=== PATIENT | female | born 1975 | race African-American/Black ===

== ENCOUNTER 2021-03-19 11:21 | Outpatient (REF) | payer OTHER, SELFPAY ==
[2021-03-19 13:04] LABS: Alanine Aminotransferase 11 U/L (0-31); Albumin Level 3.7 g/dL (3.5-5.0); Alkaline Phosphatase 66 U/L (39-117); Aspartate Amino Transferase 16 U/L (5-31); Bilirubin Direct 0.3 mg/dL (0.0-0.5); Bilirubin Total 0.6 mg/dL (0.0-1.0); Total Protein 6.7 g/dL (6.5-8.0)
== END 2021-03-19 11:22 | disposition home or self-care (01) ==
LOC: HO.LAB 11:21
PROVIDERS: PCP Internal Medicine; Visit Provider Internal Medicine
DX: R60.0 Localized edema (principal)
CPT/HCPCS: 36415; 80076; 84443

== ENCOUNTER 2021-04-06 10:09 | Outpatient (REF) | payer OTHER, SELFPAY ==
[2021-04-07 11:18] LABS: CT PCR NOT DETECTED (Not Detect.); NG PCR NOT DETECTED (Not Detect.)
[2021-04-07 11:57] LABS: BV Int Neg Control Negative (Negative); BV Int Pos Control Positive (Positive)
[2021-04-11 20:52] LABS: HPV mRNA E6/E7 rflx Not Detected (Not Detected)
== END 2021-04-06 10:10 | disposition home or self-care (01) ==
LOC: HO.LAB 10:09
PROVIDERS: PCP Internal Medicine; Visit Provider Advanced Practice Midwife
DX: Z01.419 Encounter for gynecological examination (general) (routine) without abnormal findings (principal); Z11.51 Encounter for screening for human papillomavirus (HPV); Z11.3 Encounter for screening for infections with a predominantly sexual mode of transmission; N92.0 Excessive and frequent menstruation with regular cycle; N92.1 Excessive and frequent menstruation with irregular cycle; N93.8 Other specified abnormal uterine and vaginal bleeding; Z97.5 Presence of (intrauterine) contraceptive device
CPT/HCPCS: 87480; 87491; 87510; 87591; 87624; 87660; 88142

== ENCOUNTER 2021-04-11 07:34 | Outpatient (REF) | payer OTHER, SELFPAY ==
[2021-04-11 08:08] LABS: MANUAL DIFF FLAG NO
[2021-04-11 08:27] LABS: Basophils Percent Auto 0.4 % (0-2); Eosinophils Absolute Auto 0.1 X10*3/uL (0.0-0.4); Eosinophils Percent Auto 1.2 % (0-4); Hematocrit 38.6 % (37-47); Hemoglobin 12.9 g/dl (12.0-16.0); Imm Gran Abs Auto 0.01 X10*3/uL (0.00-0.03); Imm Gran Pct Auto 0.1 % (0.0-0.4); Lymphocytes Absolute Auto 1.6 X10*3/uL (1.2-4.9); Lymphocytes Percent Auto 23.9 % (20-40); Mean Corpuscular HGB Conc 33.4 g/dl (31.0-35.0); Mean Corpuscular Hemoglobin 29.5 pg (27.0-33.0); Mean Corpuscular Volume 88.3 fL (80-98); Monocytes Absolute Auto 0.4 X10*3/uL (0.1-1.2); Monocytes Percent Auto 6.3 % (2-11); Neutrophils Absolute Auto 4.7 X10*3/uL (2.0-8.3); Neutrophils Percent Auto 68.1 % (45-73); Platelet Count 217 X10*3/uL (160-400); Red Blood Count 4.37 X10*6/uL (4.20-5.50); Red Cell Distribution Width 13.5 % (11.0-16.0); White Blood Count 6.9 X10*3/uL (4.8-10.8)
[2021-04-11 08:31] LABS: Anion Gap 9 (12-20); Blood Urea Nitrogen 11 mg/dL (9-16); Calcium 8.6 mg/dL (8.4-10.2); Carbon Dioxide 29 mmol/L (22-29); Chloride 106 mmol/L (96-108); Cholesterol 156 mg/dL; Estimated Glomerular Filt Rate > 60; Glucose Fasting 101 mg/dL (60-99); HDL Cholesterol 45 mg/dL; LDL Cholesterol Calculated 100 mg/dl; Potassium 4.4 mmol/L (3.3-5.1); Sodium 140 mmol/L (135-145); Triglycerides 57 mg/dL
== END 2021-04-11 07:35 | disposition home or self-care (01) ==
LOC: HO.LAB 07:34
PROVIDERS: Advanced Practice Midwife; PCP Internal Medicine; Visit Provider Nurse Practitioner Family
DX: Z01.419 Encounter for gynecological examination (general) (routine) without abnormal findings (principal); N92.0 Excessive and frequent menstruation with regular cycle; N93.8 Other specified abnormal uterine and vaginal bleeding; N92.1 Excessive and frequent menstruation with irregular cycle; Z97.5 Presence of (intrauterine) contraceptive device
CPT/HCPCS: 36415; 80048; 80061; 85025

== ENCOUNTER 2021-04-27 15:39 | Outpatient (REF) | payer OTHER, SELFPAY ==
--- NOTE | ~2021-04-27 | US_ITS ---
EXAMINATION: US PELVIS CLINICAL INFORMATION: Irregular/frequent menses. COMPARISON: None TECHNIQUE: Both transabdominal and endovaginal scanning was performed. FINDINGS: An anteverted anteflexed uterus present measuring 9.5 x 4.9 x 5.1 cm. Endometrium appears unremarkable at 1.1 cm in thickness. The right ovary measures 2.9 x 1.4 x 1.9 cm for a volume of 4.0 cm and contains a 1.6 x 1.9 x 1.2 cm cyst. The left ovary measures 2.7 x 1.4 x 2.1 cm for a volume of 4.2 mL. A small amount of free fluid is present in the cul-de-sac. US/US pelvic and transvaginal IMPRESSION: A significant abnormality is not seen. The endometrium appears normal. A right ovarian cyst is present that needs no further follow up.
== END 2021-04-27 15:40 | disposition home or self-care (01) ==
LOC: HO.US 15:39
PROVIDERS: Visit Provider Advanced Practice Midwife
DX: N92.1 Excessive and frequent menstruation with irregular cycle (principal); N92.0 Excessive and frequent menstruation with regular cycle; N93.8 Other specified abnormal uterine and vaginal bleeding; Z97.5 Presence of (intrauterine) contraceptive device
CPT/HCPCS: 76830; 76856

== ENCOUNTER → 2021-05-04 10:34 | Outpatient (BNVA) | payer OTHER, SELFPAY | PROVIDERS: PCP Internal Medicine; Visit Provider Advanced Practice Midwife ==

== ENCOUNTER 2024-05-17 07:51 | Outpatient (AMB) | payer OTHER, SELFPAY ==
[2024-05-17 08:05] VITALS: BP 132/88; BMI 35.9
--- NOTE | 2024-05-17 08:05 | A.OFFPC_ITS ---
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 This is the 1st time I am meeting this 49-year-old female with a past medical history significant for obesity and chronic intermittent edema in the feet. Concern--> intermittent bilateral lower extremity swelling. Has had x-rays of her lower extremities though no significant findings. Has not tried any medical compression as she feels her feet are very hot when she used socks. 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[facility]- [facility] Colon cancer screening: considering colonoscopy-though declines at this time Vaccines: Reports getting a Tdap, PFSH Surgical History History of section Family History Father Alive and well Mother Alive and well Social History (Updated 05/17/24 @ 08:18 by Jairon Boyce PA-C) Housing: House Alcohol intake: never Patient Tobacco Use Status: Never used Tobacco e-Cigarette/Vaping Use: Never Used Second Hand Smoke Exposure: No service: No Current occupational status: employed 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 1. Little interest or pleasure in doing things: not at all 2. Feeling down, depressed, or hopeless: not at all 3. Trouble falling or staying asleep, or sleeping too much: not at all 4. Feeling tired or having little energy: not at all 5. Poor appetite or overeating: not at all 6. Feeling bad about yourself - or that you are a failure or have let yourself or your family down: not at all 7. Trouble concentrating on things, such as reading the newspaper or watching television: not at all 8. Moving or speaking so slowly that other people could have noticed. Or the opposite - being so fidgety or restless that you have been moving around a lot more than usual: not at all 9. Thoughts that you would be better off or of hurting yourself in some way: not at all Total score: 0 Depression Screening [place] [address] - PHQ-9 Billing: Yes Source: Developed by Drs. Korey Altman, Marcie Moss, Lennox Welch and colleagues, with an educational kaden from [employer]. Thrive Questionnaire Date Thrive assessed: 05/17/24 I am a: Patient What is your living situation today?: I have a steady place to live Within the past 12 months, did the food you bought not last and you didn't have the money to get more?: Never true Within the past 12 months, did you worry whether your food would run out before you got money to buy more?: Never true Do you have trouble paying for medicines?: No Do you have trouble getting transportation to medical appointments?: No Do you have trouble paying your heating and electricity bill?: No Do you have trouble taking care of your child, family member or friend?: No Do you have trouble with day-to-day activities such as bathing, preparing meals, shopping, managing finances, etc.?: No Are you currently unemployed and looking for a job?: No Are you interested in more education?: No Please select the resources that you would like help with: None Currently or been in a relationship where the following occur: no concerns reported THRIVE Score: 0 AUDIT C Alcohol Use Questionnaire (AUDIT-C) 1. How often do you have a drink containing alcohol?: Never Total Score: 0 ZIA-7 AMB Questionnaire ZIA-7 Date ZIA - 7 assessed: 05/17/24 Feeling nervous, anxious, or on edge: 0 = Not at all Not being able to stop or control worryin = Not at all Worrying too much about different things: 0 = Not at all Trouble relaxin = Not at all Being so restless that it is hard to sit still: 0 = Not at all Becoming easily annoyed or irritable: 0 = Not at all Feeling afraid as if something awful might happen: 0 = Not at all Total ZIA-7 score (0-4 normal; 5-9 mild; 10-14 moderate; 15-21 severe): 0 Source: Developed by Drs. Korey Altman, Marcie Moss, Lennox Welch and colleagues, with an educational kaden from [employer]. ZIA-7 Assessment Billing ZAI-7 Assessment Tool: ZIA-7 Assessment 97024 Review of Systems Const Denies body aches, Denies chills, Denies excessive sweating, Denies fatigue, Denies fever(s) and Denies headache(s) Eyes Denies blurry vision ENT Denies dysphagia, Denies vertigo, Denies dizziness, Denies headache(s), Denies hearing loss and Denies tinnitus Card Denies chest pain, Denies chest pain with activity, Denies syncope, Denies irregular heart rhythm and Denies dyspnea Resp Denies chest congestion, Denies cough, Denies hemoptysis, Denies dyspnea and Denies wheezing GI Denies abdominal pain, Denies melena, Denies hematochezia, Denies coffee ground emesis, Denies dysphagia, Denies diarrhea, Denies nausea and Denies vomiting Denies urinary frequency, Denies dysuria, Denies urinary hesitancy and Denies urinary urgency Musc Denies arthralgias, Denies limited range of motion, Denies muscle cramps and Denies muscle weakness Skin/Breast Denies rash and Denies skin ulcer Neuro Denies Abnormal speech present, Denies confusion, Denies vertigo, Denies dizziness, Denies syncope, Denies headache(s), Denies memory loss and Denies seizure-like activity Psych Denies anxiety, Denies confusion, Denies depression, Denies memory loss, Denies panic attacks and Denies paranoia Endo Denies excessive sweating, Denies fatigue, Denies flushing, Denies polydipsia and Denies polyuria Aller/Immun Denies wheezing Physical exam (Primary Care) Vital Signs: Last Vital Signs BP 132/88 05/17/24 08:05 BMI result Body Mass Index 35.9 Tobacco/Smoking Status: Tobacco use Status Tobacco use date assessed 05/17/24 05/17/24 08:11 Patient Tobacco Use Status Never used Tobacco 05/17/24 08:11 e-Cigarette/Vaping Use Never Used 05/17/24 08:11 PHQ-9: PHQ-9 Score PHQ-9: Total score 0 05/17/24 08:11 Thrive Assessment: Date of Thrive Assessment Date Thrive assessed 05/17/24 05/17/24 08:11 Currently or been in a relationship where the following occur: no concerns reported Const General: cooperative, comfortable, no acute distress, alert and awake; No confusion Orientation/consciousness: oriented to person, oriented to place, patient oriented x3 and No confusion HENMT Head: Yes normocephalic Ears: external ears normal and TM's normal bilaterally Face and sinus: No sinus tenderness Mouth: Normal oral and palatal mucosa present and tongue normal Teeth and gingiva: dentition normal and gingiva normal Throat: Yes posterior oropharynx normal, Yes tonsils normal and Yes uvula midline Eyes Conjunctivae: conjunctivae normal Sclerae: sclerae normal Pupils: Equal, round and reactive pupils present EOM: EOMs intact bilaterally Direct Ophthalmoscopy: No no photophobia Neck Neck: Yes no lymphadenopathy, No tender and Yes no JVD Thyroid: Thyroid normal Carotids: no bruits Chest Chest palpation & inspection: no tenderness Resp Effort & Inspection: normal respiratory effort, no audible wheezes, not labored and no stridor Auscultation: no crackles, no rales, no rhonchi and no wheezes Cardio Jugular venous distension: no JVD Rate: regular rate, not bradycardic and not tachycardic Rhythm: regular rhythm Bruits: no carotid bruits Peripheral pulses: Peripheral pulses 2+ throughout GI Inspection: Yes normal to inspection, No abdominal wall ecchymosis and No visible herniation Palpation (GI): Soft to palpation, nontender, no guarding, not rigid and No hepatosplenomegaly present Auscultation: normoactive bowel sounds General: Yes no CVA tenderness Back/Spine/Pelvis Back: no CVA tenderness and No back tenderness Cervical Spine: cervical ROM normal Thoracic/Lumbar Spine: thoracic and lumbar spine normal to inspection, straight leg raise negative bilaterally, No thoraco-lumbar ROM limited and No lumbar spinal tenderness Skin Lesions: no lesions Rashes: no rashes Wounds: no wounds Neuro General: oriented to person, oriented to place, patient oriented x3, CN's II-XI intact bilaterally and No confusion Cranial nerves: Yes Equal, round and reactive pupils present and Yes Normal accommodation reflex present Cognition (Neuro): normal cognition Speech: No Abnormal speech present Gait exam (Neuro): Normal gait present Motor exam (neuro): 5/5 motor strength present throughout Extrem Right upper extremity: full ROM; no cyanosis Left upper extremity: full ROM; no cyanosis Right lower extremity: edema Left lower extremity: edema Psych Appearance: grossly normal Mental Status: mental status grossly normal Affect: normal affect Attitude: cooperative Thought process: Normal thought process present Assessment and Plan Assessment & Plan (1) Physical exam: Code(s): Z00.00 - Encounter for general adult medical examination without abnormal findings (2) Edema of both feet: Code(s): R60.0 - Localized edema Plan: Patient reports a several year history of intermittent swelling in her lower extremities. She does report getting x-rays over lower extremities though nothing was found. Did suggest getting ultrasound to evaluate for peripheral vascular venous disease. Advised on compression socks. Will supply patient with low-dose diuretic to use on a daily or [id number] basis. Advised on low-sodium diet (3) Colon cancer screening: Code(s): Z12.11 - Encounter for screening for malignant neoplasm of colon Plan: patient considering colon cancer screening (4) Screening for diabetes mellitus (DM): Code(s): Z13.1 - Encounter for screening for diabetes mellitus (5) Borderline high blood pressure: Code(s): R03.0 - Elevated blood-pressure reading, without diagnosis of hypertension Plan: Noted borderline high blood pressure today in office. Will start hydrochlorothiazide 12.5 for better blood pressure control. Advised on monitoring blood pressure and reducing salt in her diet. Orders: Orders Complete Blood Count no Diff Today Z13.1 - Encounter for screening for diabetes mellitus Comprehensive [place]. Panel Fast Today Z13.1 - Encounter for screening for diabetes mellitus US venous duplex LE BI Today R60.0 - Localized edema Medications: New hydrochlorothiazide 12.5 mg PO QAM 30 days 30 tabs 1RF R60.0 - Localized edema Coding Level of Care Code Est Pt Prev Care 40-64y(88535) Diagnoses Physical exam Z00.00 Edema of both feet R60.0 Colon cancer screening Z12.11 Screening for diabetes mellitus (DM) Z13.1 Borderline high blood pressure R03.0 Additional Codes ZIA-7 Assessment Billing - ZIA-7 Assessment Tool: ZIA-7 Assessment [id number] ([id number])
== END 2024-05-17 08:35 | disposition home or self-care (01) ==
PROVIDERS: PCP Internal Medicine; Visit Provider Physician Assistant
DX: Z00.00 Encounter for general adult medical examination without abnormal findings (principal); R60.0 Localized edema; R03.0 Elevated blood-pressure reading, without diagnosis of hypertension
CPT/HCPCS: 99396

== ENCOUNTER 2024-05-19 08:25 | Outpatient (REF) | payer OTHER, SELFPAY ==
--- NOTE | ~2024-05-19 | US_ITS ---
EXAMINATION: US LOWER EXTREMITY VENOUS (REFLUX EXAM), BILATERAL CLINICAL INDICATION: Localized edema, for PVD COMPARISON: None. TECHNIQUE: Color flow triplex imaging and compression Doppler was performed to evaluate both the deep and the superficial systems bilaterally. To evaluate the superficial system, the examination was performed in the upright position. Color-flow Doppler ultrasound and compression ultrasound were utilized. In addition, maneuvers were utilized to demonstrate reflux. FINDINGS: 1. DEEP VENOUS ULTRASOUND OF THE RIGHT LOWER EXTREMITY: Common Femoral Vein: Compressible, normal respiratory variation and augmented flow. Femoral Vein: Compressible, normal color flow and augmentation. Popliteal Vein: Compressible, normal augmentation. Deep Reflux: There is no evidence of reflux in the deep system in either the common femoral vein, superficial femoral or the popliteal vein. There is no evidence of a Day's cyst. 2. SUPERFICIAL ULTRASOUND WITH DOPPLER OF RIGHT LOWER EXTREMITY: GREAT SAPHENOUS VEIN: Saphenofemoral Junction: 0.6 cm; Reflux: 0 ms Proximal Thigh: 0.7 cm; Reflux: 0 ms Mid Thigh: 0.3 cm; Reflux: 0 ms Above Knee: 0.4 cm; Reflux: 0 ms At Knee: 0.4 cm; Reflux: 0 ms Below Knee: 0.2 cm; Reflux: 0 ms Mid Calf: 0.2 cm; Reflux: 0 ms Ankle: 0.2 cm; Reflux: 0 ms SMALL SAPHENOUS VEIN: Saphenopopliteal Junction: 0.2 cm; Reflux: 0 ms Proximal: 0.2 cm; Reflux: 0 ms Distal: 0.1 cm; Reflux: 0 ms 3. DEEP VENOUS ULTRASOUND OF THE LEFT LOWER EXTREMITY: Common Femoral Vein: Compressible, normal respiratory variation and augmented flow. Femoral Vein: Compressible, normal color flow and augmentation. Popliteal Vein: Compressible, normal augmentation. Deep Reflux: There is no evidence of reflux in the deep system in either the common femoral vein, superficial femoral or the popliteal vein. There is no evidence of a Day's cyst. 4. SUPERFICIAL ULTRASOUND WITH DOPPLER OF LEFT LOWER EXTREMITY: GREAT SAPHENOUS VEIN: Saphenofemoral Junction: 0.4 cm; Reflux: 0 ms Proximal Thigh: 0.5 cm; Reflux: 0 ms Mid Thigh: 0.2 cm; Reflux: 0 ms Above Knee: 0.3 cm; Reflux: 0 ms At Knee: 0.3 cm; Reflux: 0 ms Below Knee: 0.1 cm; Reflux: 0 ms Mid Calf: 0.2 cm; Reflux: 0 ms Ankle: 0.2 cm; Reflux: 0 ms SMALL SAPHENOUS VEIN: Saphenopopliteal Junction: 0.1 cm; Reflux: 0 ms Proximal: 0.1 cm; Reflux: 0 ms Distal: 0.2 cm; Reflux: 0 ms US/US venous duplex LE BI IMPRESSION: 1. No evidence of deep venous thrombosis or reflux. 2. No significant venous insufficiency bilaterally.
[2024-05-19 10:11] LABS: Hematocrit 40.7 % (37.0-47.0); Mean Corpuscular HGB Conc 34.4 g/dl (31.0-35.0); Mean Corpuscular Hemoglobin 30.3 pg (27.0-33.0); Mean Corpuscular Volume 88.1 fL (80.0-98.0); Mean Platelet Volume 10.9 fL (9.4-12.3); Platelet Count 228 X10*3/uL (160-400); Red Blood Count 4.62 X10*6/uL (4.20-5.50); Red Cell Distribution Width 13.6 % (11.0-16.0)
[2024-05-19 11:10] LABS: Alanine Aminotransferase 12 U/L (0-31); Albumin Level 3.7 g/dL (3.5-5.0); Alkaline Phosphatase 62 U/L (39-117); Anion Gap 9 (12-20); Aspartate Amino Transferase 14 U/L (5-31); Bilirubin Total 0.4 mg/dL (0.0-1.0); Blood Urea Nitrogen 8 mg/dL (9-16); Calcium 9.3 mg/dL (8.4-10.2); Carbon Dioxide 29 mmol/L (22-29); Chloride 107 mmol/L (96-108); Estimated Glomerular Filt Rate > 60; Glucose Fasting 98 mg/dL (60-99); Potassium 4.5 mmol/L (3.3-5.1); Sodium 140 mmol/L (135-145)
== END 2024-05-19 08:26 | disposition home or self-care (01) ==
LOC: HO.US 08:25
PROVIDERS: PCP Internal Medicine; Visit Provider Physician Assistant
DX: R60.0 Localized edema (principal); Z13.1 Encounter for screening for diabetes mellitus
CPT/HCPCS: 36415; 80053; 85027; 93970

== ENCOUNTER 2025-05-19 08:51 | Outpatient (AMB) | payer OTHER, SELFPAY ==
[2025-05-19 08:53] VITALS: BP 126/84; PULSE 71; O2SAT 98; BMI 38.1
--- NOTE | 2025-05-19 08:53 | A.OFFPC_ITS ---
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 Accompanied by: Self / Same As Patient Allergies No Known Allergies Allergy (Verified 05/19/25 08:54) Medication List - Last Reconciled 05/19/25 by Grover Doran MD etonogestrel (Nexplanon) subdermal Tobacco use date assessed: 05/19/25 Dental Screening Dental Screen Date: 05/19/25 Did you have a dental visit in the last 12 months?: No Did you have a dental problem in the last 6 months where you did not have access to dental care?: No Was dental information given to patient?: Patient has dentist [facility] Surgical History History of section Family History Father Alive and well Mother Alive and well Social History Housing: House Alcohol intake: never Patient Tobacco Use Status: Never used Tobacco e-Cigarette/Vaping Use: Never Used Second Hand Smoke Exposure: No service: No Current occupational status: employed Current occupation: [employer] Current occupational exposures/hazards: No Gender identity: Female Cognitive needs: No Hearing needs: No Vision needs: No Female Reproductive History Menstrual Age of Menarche: 17 Questionnaire PHQ-9 Over the last 2 weeks, how often have you been bothered by any of the following problems? 1. Little interest or pleasure in doing things: not at all 2. Feeling down, depressed, or hopeless: not at all 3. Trouble falling or staying asleep, or sleeping too much: not at all 4. Feeling tired or having little energy: not at all 5. Poor appetite or overeating: not at all 6. Feeling bad about yourself - or that you are a failure or have let yourself or your family down: not at all 7. Trouble concentrating on things, such as reading the newspaper or watching television: not at all 8. Moving or speaking so slowly that other people could have noticed. Or the opposite - being so fidgety or restless that you have been moving around a lot more than usual: not at all 9. Thoughts that you would be better off or of hurting yourself in some way: not at all Total score: 0 21919 - PHQ-9 Billing: Yes Source: Developed by Drs. Korey Altman, Marcie Moss, Lennox Welch and colleagues, with an educational kaden from [employer]. Thrive Questionnaire Date Thrive assessed: 05/19/25 I am a: Patient What is your living situation today?: I have a steady place to live Within the past 12 months, did the food you bought not last and you didn't have the money to get more?: Never true Within the past 12 months, did you worry whether your food would run out before you got money to buy more?: Never true Do you have trouble paying for medicines?: No Do you have trouble getting transportation to medical appointments?: No Do you have trouble paying your heating and electricity bill?: No Do you have trouble taking care of your child, family member or friend?: No Do you have trouble with day-to-day activities such as bathing, preparing meals, shopping, managing finances, etc.?: No Are you currently unemployed and looking for a job?: No Are you interested in more education?: No Please select the resources that you would like help with: None Currently or been in a relationship where the following occur: No concerns reported THRIVE Score: 0 AUDIT C Alcohol Use Questionnaire (AUDIT-C) 1. How often do you have a drink containing alcohol?: Never 3. How often do you have six or more drinks on one occasion?: Never Total Score: 0 ZIA-7 AMB Questionnaire ZIA-7 Date ZIA - 7 assessed: 05/19/25 Feeling nervous, anxious, or on edge: 0 = Not at all Not being able to stop or control worryin = Not at all Worrying too much about different things: 0 = Not at all Trouble relaxin = Not at all Being so restless that it is hard to sit still: 0 = Not at all Becoming easily annoyed or irritable: 0 = Not at all Feeling afraid as if something awful might happen: 0 = Not at all Total ZAI-7 score (0-4 normal; 5-9 mild; 10-14 moderate; 15-21 severe): 0 Source: Developed by Drs. Korey Altman, Marcie Moss, Lennox Welch and colleagues, with an educational kaden from [employer]. ZIA-7 Assessment Billing ZIA-7 Assessment Tool: ZIA-7 Assessment 05921 Review of Systems Const Denies poor appetite and Denies weakness Eyes Denies no additional complaints ENT Reports Normal hearing present, Denies dizziness, Denies nasal congestion, Denies tinnitus and Denies sore throat Card Denies chest pain, Denies syncope, Denies rapid heart rate and Denies dyspnea Resp Denies cough and Denies dyspnea GI Denies change in stool character, Reports constipation, Denies diarrhea, Denies nausea and Denies vomiting Denies urinary frequency, Denies difficulty voiding and Denies dysuria Neuro Reports Normal hearing present, Denies confusion, Denies dizziness, Denies syncope and Denies weakness Psych Denies confusion Physical exam (Primary Care) Vital Signs: Last Vital Signs Pulse 71 05/19/25 08:53 BP 126/84 05/19/25 08:53 Pulse Ox 98 05/19/25 08:53 Oxygen Delivery Method Room Air 05/19/25 08:53 BMI result Body Mass Index 38.1 Tobacco/Smoking Status: Tobacco use Status Tobacco use date assessed 05/19/25 05/19/25 08:55 Patient Tobacco Use Status Never used Tobacco 05/19/25 08:55 e-Cigarette/Vaping Use Never Used 05/19/25 08:55 PHQ-9: PHQ-9 Score PHQ-9: Total score 0 05/19/25 09:28 Thrive Assessment: Date of Thrive Assessment Date Thrive assessed 05/19/25 05/19/25 08:55 Currently or been in a relationship where the following occur: No concerns reported Const General: No confusion Orientation/consciousness: No confusion HENMT Head: Yes normocephalic Ears: external ears normal and TM's normal bilaterally Face and sinus: Yes normal facial exam Mouth: moist mucous membranes Throat: Yes tonsils normal Eyes Conjunctivae: conjunctivae normal Pupils: Equal, round and reactive pupils present and Pupil accommodation reflex normal Direct Ophthalmoscopy: normal light reflex Neck Neck: No lymphadenopathy Thyroid: Thyroid normal Chest Chest palpation & inspection: normal inspection of the chest Resp Effort & Inspection: normal respiratory effort and no audible wheezes Auscultation: clear to auscultation bilaterally, no crackles, no wheezes and lung sounds not diminished Cardio Rate: regular rate Rhythm: regular rhythm Peripheral pulses: radial pulses present and dorsalis pedis present GI Palpation (GI): no masses Auscultation: normal bowel sounds and normoactive bowel sounds Rectal Exam - Female: deferred Skin General skin exam: no rashes or lesions noted Rashes: no rashes Neuro General: No confusion Cranial nerves: Yes Equal, round and reactive pupils present and Yes Normal hear ing present Cognition (Neuro): normal cognition Gait exam (Neuro): Normal gait present Motor exam (neuro): 5/5 motor strength present throughout Deep tendon reflexes (DTR's): Right brachioradialis reflex intensity grade: 2+, Left brachioradialis reflex intensity grade: 2+, Right patellar reflex intensity grade: 2+ and Left patellar reflex intensity grade: 2+ Extrem General: No edema Coding Level of Care Code Est Pt Prev Care 40-64y([id number]) Diagnoses Annual physical exam Z00.00 Impaired glucose tolerance R73.02 Obesity (BMI 30-39.9) E66.9 Colon cancer screening Z12.11 Frequency of micturition R35.0 Bilateral swelling of feet M79.89 Vision changes H53.9 Additional Codes ZIA-7 Assessment Billing - ZIA-7 Assessment Tool: ZIA-7 Assessment 19152 ([id number]) PHQ-9 - 95266 - PHQ-9 Billing: Yes ([id number]) Assessment & Plan Assessment & Plan (1) Annual physical exam: Code(s): Z00.00 - Encounter for general adult medical examination without abnormal findings Category: Medical Plan: Patient is advised to eat healthy, keep well hydrated, keep active and have adequate sleep. (2) Impaired glucose tolerance: Code(s): R73.02 - Impaired glucose tolerance (oral) Category: Medical Plan: Decrease the amount of carbohydrate intake, pasta, bread, rice and potatoes are all sugar and that is aside from all the sweet stuff, remember that fruits are good but they are Sweet also. (3) Obesity (BMI 30-39.9): Code(s): E66.9 - Obesity, unspecified Category: Medical Plan: Diet and exercise (4) Colon cancer screening: Code(s): Z12.11 - Encounter for screening for malignant neoplasm of colon Category: Medical Plan: Patient is reminded about colon cancer screening (5) Frequency of micturition: Code(s): R35.0 - Frequency of micturition Category: Medical (6) Bilateral swelling of feet: Code(s): M79.89 - Other specified soft tissue disorders Category: Medical (7) Vision changes: Code(s): H53.9 - Unspecified visual disturbance Category: Medical Plan History of Present Illness The patient is a 50-year-old female presenting for an annual physical examination and wellness visit. The patient has a history of obesity, with a noted weight gain of 11 pounds s jennifer May 2024, bringing her current weight to 190 pounds. She reports working overnight shifts, which may contribute to her weight management challenges. The patient has a history of dysfunctional uterine bleeding, although specific details regarding onset and management were not discussed. Peripheral edema has been noted, with swelling in the feet that persists even after rest. An ultrasound of the lower extremities showed no evidence of deep vein thrombosis, suggesting a circulatory issue rather than a thrombotic one. The patient has impaired glucose tolerance, with a previous fasting blood glucose level slightly elevated at 101 mg/dL. She denies any current symptoms of diabetes such as increased thirst or frequent urination beyond what was previously noted. Preventative care measures include an up-to-date mammogram and a discussion about colon cancer screening options, with the patient opting for a stool test over a colonoscopy at this time. Health Maintenance - Mammogram is up to date - Colon cancer screening with stool test planned - Dietary advice: Increase intake of vegetables, reduce carbohydrates - Exercise recommendation: Engage in regular physical activity Social History - Employment: Works overnight shifts, which may impact health and weight management - Substance use: No history of alcohol use, minimal tobacco use Review of Systems - General: Denies fever, fatigue - Cardiovascular: Denies chest pain, palpitations - Respiratory: Denies dyspnea, cough - Gastrointestinal: Denies nausea, vomiting, heartburn - Genitourinary: Reports increased frequency of urination, denies dysuria - Neurological: Denies dizziness, headaches Physical Exam General: Cooperative, healthy appearing, comfortable, no acute distress and well developed Orientation: Patient oriented x3 Limitations: No limitations Head: Normal to inspection Ears: Hearing grossly normal bilaterally, some ear wax present Nose: Normal external nose present Face and sinus: Normal facial exam Eyes: Appearance normal, both eyes and all related structures Neck: Normal visual inspection and Yes full ROM Respiratory: Normal respiratory effort and able to speak in complete sentences. Clear to auscultation bilaterally Cardiovascular: Regular rate and rhythm. Normal S1 and S2 GI: Normal to inspection. Soft to palpation and nontender Skin: No rashes or lesions noted Neuro: Patient oriented x3 Extremities: Swelling noted in lower extremities, more pronounced in the morning. Normal to inspection otherwise. Results - Labs: Normal blood count, normal electrolytes, normal renal function, normal liver function, fasting blood glucose elevated at 101 mg/dL - Imaging: Ultrasound of lower extremities showed no evidence of deep vein thrombosis Plan The patient will undergo blood work and urine testing to further evaluate her glucose levels and urinary symptoms. A fasting blood glucose test is recommended to monitor her impaired glucose tolerance, and she is advised to maintain an eight-hour fast prior to testing. For her peripheral edema, the patient is advised to elevate her legs when sitting, engage in regular exercise, and wear compression stockings to improve circulation. Further evaluation of kidney and liver function will be conducted to rule out other causes of edema. Preventative care includes maintaining an up-to-date mammogram and opting for a stool test for colon cancer screening. Dietary modifications are recommended, focusing on increased vegetable intake and reduced carbohydrate consumption, along with regular physical activity to manage weight. Patient was informed and verbally consented to the use of an ambient scribe for clinic note documentation during this visit. Discussion Notes During the visit, I discussed with the patient the importance of monitoring her glucose levels due to her impaired glucose tolerance and advised her on the necessary fasting requirements for accurate testing. We reviewed the management of her peripheral edema, emphasizing the role of leg elevation, exercise, and compression stockings in improving circulation. Preventative care options were discussed, including the benefits of a stool test for colon cancer screening as an alternative to colonoscopy, and the importance of maintaining an up-to-date mammogram. I provided dietary and exercise recommendations to support weight management and overall health. Patient Instructions - Schedule and complete blood work and urine tests as soon as possible. - Fast for eight hours before the blood glucose test; only water is allowed. - Elevate legs when sitting and wear compression stockings to reduce swelling. - Maintain a balanced diet with more vegetables and fewer carbohydrates. - Engage in regular physical activity to support weight management. - Complete the stool test for colon cancer screening as discussed. Orders: Orders Complete Blood Count Auto Diff Today R73.02 - Impaired glucose tolerance (oral) Free T4 (Free Thyroxine) Today R73.02 - Impaired glucose tolerance (oral) Lipid Panel Today E78.00 - Pure hypercholesterolemia, unspecified, R73.02 - Impaired glucose tolerance (oral) Thyroid Stimulating Hormone Today R73.02 - Impaired glucose tolerance (oral) Comprehensive Met. Panel Today R73.02 - Impaired glucose tolerance (oral) Hemoglobin A1c Today R73.02 - Impaired glucose tolerance (oral) Vitamin B12 and Folate Today R73.02 - Impaired glucose tolerance (oral) Vitamin D 25-OH Total Today R73.02 - Impaired glucose tolerance (oral) UA CC w/rflx Micro + Cult Today R30.0 - Dysuria, R73.02 - Impaired glucose tolerance (oral) B Type Natriuretic Peptide Today M79.89 - Other specified soft tissue disorders ECG 12 lead EKG Today M79.89 - Other specified soft tissue disorders Referrals Cologuard Test Z12.11 - Encounter for screening for malignant neoplasm of colon, Z12.12 - Encounter for screening for malignant neoplasm of rectum Ophthalmology Referral H53.9 - Unspecified visual disturbance
== END 2025-05-19 09:55 | disposition home or self-care (01) ==
PROVIDERS: PCP Internal Medicine; Visit Provider Internal Medicine
DX: Z00.00 Encounter for general adult medical examination without abnormal findings (principal); R73.02 Impaired glucose tolerance (oral); E66.9 Obesity, unspecified; Z68.38 Body mass index [BMI] 38.0-38.9, adult; Z12.11 Encounter for screening for malignant neoplasm of colon; R35.0 Frequency of micturition; M79.89 Other specified soft tissue disorders; H53.9 Unspecified visual disturbance

== ENCOUNTER → 2025-05-19 08:51 | Outpatient (BNVA) | payer OTHER, SELFPAY | PROVIDERS: PCP Internal Medicine; Visit Provider Internal Medicine | DX: Z00.00 Encounter for general adult medical examination without abnormal findings (principal); R73.02 Impaired glucose tolerance (oral); E66.9 Obesity, unspecified; H53.9 Unspecified visual disturbance; R35.0 Frequency of micturition; M79.89 Other specified soft tissue disorders; E78.00 Pure hypercholesterolemia, unspecified | CPT/HCPCS: 96127 ==

== ENCOUNTER 2025-05-27 07:46 | Outpatient (REF) | payer OTHER, SELFPAY ==
--- NOTE | 2025-05-27 07:55 | ECG_ITS ---
Test Reason : M79.89 SOFT TISSUE D/O Blood Pressure : */* mmHG Vent. Rate : 63 BPM Atrial Rate : 63 BPM P-R Int : 102 ms QRS Dur : 76 ms QT Int : 408 ms P-R-T Axes : 45 35 16 degrees QTcB Int : 417 ms Sinus rhythm with short CT Otherwise normal ECG No previous ECGs available Referred By: Grover Doran Electronically Signed By: AYAN ESPINOZA
[2025-05-27 07:59] LABS: MANUAL DIFF FLAG NO
[2025-05-27 08:03] LABS: Basophils Percent Auto 0.5 % (0-2); Eosinophils Absolute Auto 0.1 X10*3/uL (0.0-0.4); Eosinophils Percent Auto 0.9 % (0-4); Hematocrit 41.9 % (37.0-47.0); Hemoglobin 14.1 g/dl (12.0-16.0); Imm Gran Abs Auto 0.02 X10*3/uL (0.00-0.03); Imm Gran Pct Auto 0.3 % (0.0-0.4); Lymphocytes Absolute Auto 1.6 X10*3/uL (1.2-4.9); Lymphocytes Percent Auto 27.9 % (20-40); Mean Corpuscular HGB Conc 33.7 g/dl (31.0-35.0); Mean Corpuscular Hemoglobin 29.5 pg (27.0-33.0); Mean Corpuscular Volume 87.7 fL (80.0-98.0); Mean Platelet Volume 10.5 fL (9.4-12.3); Monocytes Absolute Auto 0.4 X10*3/uL (0.1-1.2); Monocytes Percent Auto 7.1 % (2-11); Neutrophils Absolute Auto 3.7 x10*3/uL (2.0-8.3); Neutrophils Percent Auto 63.3 % (45-73); Platelet Count 204 X10*3/uL (160-400); Red Blood Count 4.78 X10*6/uL (4.20-5.50); Red Cell Distribution Width 13.2 % (11.0-16.0); White Blood Count 5.8 X10*3/uL (4.8-10.8)
[2025-05-27 08:10] LABS: Estimated Average Glucose 100 mg/dL; Hemoglobin A1c % 5.1 % (<6.0)
[2025-05-27 08:16] LABS: Appearance Urine Clear; Color Urine Yellow; Glucose Urine UA Negative (Negative); Leukocyte Esterase Urine Negative (Negative); Nitrite Urine Negative (Negative); PH 6.5 (5.0-9.0); Specific Gravity - Urine 1.025 (1.005-1.025); Urine Blood Negative (Negative); Urine Ketones Trace mg/dL (Negative); Urine Protein Negative (Neg-Trace)
[2025-05-27 08:31] LABS: B Type Natriuretic Peptide 10 pg/mL (<100)
[2025-05-27 08:35] LABS: Alanine Aminotransferase 13 U/L (0-31); Albumin Level 3.9 g/dL (3.5-5.0); Alkaline Phosphatase 65 U/L (39-117); Anion Gap 10 (12-20); Aspartate Amino Transferase 21 U/L (5-31); Bilirubin Total 0.5 mg/dL (0.0-1.0); Blood Urea Nitrogen 12 mg/dL (9-16); Carbon Dioxide 28 mmol/L (22-29); Chloride 108 mmol/L (96-108); Cholesterol 191 mg/dL (<200); Estimated Glomerular Filt Rate > 60; Glucose Random 105 mg/dL (60-115); HDL Cholesterol 40 mg/dL (>40); LDL Cholesterol Calculated 140 mg/dL (<100); Potassium 4.5 mmol/L (3.3-5.1); Sodium 141 mmol/L (135-145); Total Protein 7.2 g/dL (6.5-8.0); Triglycerides 55 mg/dL (<150)
[2025-05-27 08:57] LABS: Free T4 (Free Thyroxine) 0.98 ng/dL (0.71-1.85); Thyroid Stimulating Hormone 1.02 uIU/mL (0.32-4.0); Vitamin D 25-OH Total 10.1 ng/mL (>30)
[2025-05-27 09:07] LABS: Folate 10.6 ng/mL (> or = 4.0); Vitamin B12 909 pg/mL (200-900)
== END 2025-05-27 07:47 | disposition home or self-care (01) ==
LOC: HO.LAB 07:46
PROVIDERS: PCP Internal Medicine; Visit Provider Internal Medicine
DX: R73.02 Impaired glucose tolerance (oral) (principal); R30.0 Dysuria; E78.00 Pure hypercholesterolemia, unspecified; M79.89 Other specified soft tissue disorders
CPT/HCPCS: 36415; 80053; 80061; 81003; 82306; 82607; 82746; 83036; 83880; 84439; 84443; 85025; 93005

== ENCOUNTER → 2025-05-27 07:55 | Outpatient (BNV) | payer OTHER, SELFPAY | PROVIDERS: PCP Internal Medicine; Visit Provider Internal Medicine | DX: M79.89 Other specified soft tissue disorders (principal) | CPT/HCPCS: 93010 ==

== ENCOUNTER 2025-09-22 08:41 | Outpatient (AMB) | payer OTHER, SELFPAY ==
[2025-09-22 08:50] VITALS: BP 138/70; PULSE 65; O2SAT 99; BMI 37.9
--- NOTE | 2025-09-22 08:50 | A.OFFPC_ITS ---
Vital Signs 09/22/25 08:50 Height 5 ft Weight 194 lb BMI 37.9 BP 138/70 Blood Pressure Location Rt brachial Position Sitting Pulse 65 Pulse Source Pulse Oximeter Pulse Oximetry (%) 99 Oxygen Delivery Method Room Air Intake Visit Reasons: 3mth f/u Allergies No Known Allergies Allergy (Verified 09/22/25 08:50) Tobacco use date assessed: 05/19/25 Dental Screening Dental Screen Date: 05/19/25 [facility] Medical History (Updated 09/22/25 @ 09:10 by Grover Doran MD) Screening for diabetes mellitus (DM) Surgical History History of section Family History Father Alive and well Mother Alive and well Social History Housing: House Alcohol intake: never Patient Tobacco Use Status: Never used Tobacco Tobacco use type: Cigarette e-Cigarette/Vaping Use: Never Used Second Hand Smoke Exposure: No service: No Current occupational status: employed Current occupation: [employer] Current occupational exposures/hazards: No Gender identity: Female Cognitive needs: No Hearing needs: No Vision needs: No Female Reproductive History Menstrual Age of Menarche: 17 Questionnaire PHQ-9 Over the last 2 weeks, how often have you been bothered by any of the following problems? 1. Little interest or pleasure in doing things: not at all 2. Feeling down, depressed, or hopeless: not at all 3. Trouble falling or staying asleep, or sleeping too much: not at all 4. Feeling tired or having little energy: not at all 5. Poor appetite or overeating: not at all 6. Feeling bad about yourself - or that you are a failure or have let yourself or your family down: not at all 7. Trouble concentrating on things, such as reading the newspaper or watching television: not at all 8. Moving or speaking so slowly that other people could have noticed. Or the opposite - being so fidgety or restless that you have been moving around a lot more than usual: not at all 9. Thoughts that you would be better off or of hurting yourself in some way: not at all Total score: 0 Depression Screening Interpretation: Negative Depression Screening Done: Yes Source: Developed by Drs. Korey Altman, Marcie Moss, Lennox Welch and colleagues, with an educational kaden from [employer]. Thrive Questionnaire Date Thrive assessed: 05/19/25 I am a: Patient What is your living situation today?: I have a steady place to live Within the past 12 months, did the food you bought not last and you didn't have the money to get more?: Never true Within the past 12 months, did you worry whether your food would run out before you got money to buy more?: Never true Do you have trouble paying for medicines?: No Do you have trouble getting transportation to medical appointments?: No Do you have trouble paying your heating and electricity bill?: No Do you have trouble taking care of your child, family member or friend?: No Do you have trouble with day-to-day activities such as bathing, preparing meals, shopping, managing finances, etc.?: No Are you currently unemployed and looking for a job?: No Are you interested in more education?: No Please select the resources that you would like help with: None Currently or been in a relationship where the following occur: No concerns reported THRIVE Score: 0 AUDIT C Alcohol Use Questionnaire (AUDIT-C) 1. How often do you have a drink containing alcohol?: Never 3. How often do you have six or more drinks on one occasion?: Never Total Score: 0 ZIA-7 AMB Questionnaire ZIA-7 Date ZIA - 7 assessed: 05/19/25 Feeling nervous, anxious, or on edge: 0 = Not at all Not being able to stop or control worryin = Not at all Worrying too much about different things: 0 = Not at all Trouble relaxin = Not at all Being so restless that it is hard to sit still: 0 = Not at all Becoming easily annoyed or irritable: 0 = Not at all Feeling afraid as if something awful might happen: 0 = Not at all Total ZIA-7 score (0-4 normal; 5-9 mild; 10-14 moderate; 15-21 severe): 0 Source: Developed by Marcie Loja Kurt Kroenke and colleagues, with an educational kaden from [employer]. Physical exam (Primary Care) Vital Signs: Last Vital Signs Pulse 65 09/22/25 08:50 BP 138/70 09/22/25 08:50 Pulse Ox 99 09/22/25 08:50 Oxygen Delivery Method Room Air 09/22/25 08:50 BMI result Body Mass Index 37.9 Tobacco/Smoking Status: Tobacco use Status Tobacco use date assessed 05/19/25 09/22/25 08:55 Patient Tobacco Use Status Never used Tobacco 09/22/25 08:55 Tobacco use type Cigarette 09/22/25 08:55 e-Cigarette/Vaping Use Never Used 09/22/25 08:55 PHQ-9: PHQ-9 Score PHQ-9: Total score 0 09/22/25 09:11 Depression Screening Interpretation: Negative Thrive Assessment: Date of Thrive Assessment Date Thrive assessed 05/19/25 09/22/25 08:55 Currently or been in a relationship where the following occur: No concerns reported Const General: alert; No acute distress Eyes Conjunctivae: conjunctivae normal Resp Auscultation: clear to auscultation bilaterally Cardio Rate: regular rate Rhythm: regular rhythm GI Inspection: Yes normal to inspection Extrem General: Yes normal to inspection and No edema Coding Level of Care Code Est Pt Level 4 (32105) Complex EM visit Add On G2211 Diagnoses Impaired glucose tolerance R73.02 Obesity (BMI 30-39.9) E66.9 Colon cancer screening Z12.11 Bilateral swelling of feet M79.89 Vitamin D deficiency E55.9 Hypercholesterolemia E78.00 Assessment & Plan Assessment & Plan (1) Impaired glucose tolerance: Code(s): R73.02 - Impaired glucose tolerance (oral) Category: Medical Plan: Decrease the amount of carbohydrate intake, pasta, bread, rice and potatoes are all sugar and that is aside from all the sweet stuff, remember that fruits are good but they are Sweet also. (2) Obesity (BMI 30-39.9): Code(s): E66.9 - Obesity, unspecified Category: Medical Plan: Diet and exercise (3) Colon cancer screening: Code(s): Z12.11 - Encounter for screening for malignant neoplasm of colon Category: Medical Plan: Reminded about colon cancer screening (4) Bilateral swelling of feet: Code(s): M79.89 - Other specified soft tissue disorders Category: Medical Plan: When sitting down elevate the legs, exercise, and support stockings (5) Vitamin D deficiency: Code(s): E55.9 - Vitamin D deficiency, unspecified Category: Medical Plan: Vitamin-D [id number] units once a day (6) Hypercholesterolemia: Code(s): E78.00 - Pure hypercholesterolemia, unspecified Category: Medical Plan: Avoid fried foods, chicken skin, eggs, butter margarine, pastries and meat. Be it pork or beef they have a lot of cholesterol LDL goal of less than 130 and triglyceride of less than 150 Plan History of Present Illness The patient is a 50-year-old female presenting for a follow-up visit to address bilateral lower extremity swelling and review blood work results. The patient has a history of obesity, which has been a contributing factor to her impaired glucose tolerance and hypercholesterolemia. Her fasting blood sugar was recorded at 105 mg/dL, indicating prediabetes, although she is not currently diabetic. The patient has been advised to monitor her diet, particularly reducin g intake of carbohydrates such as pasta, bread, rice, and potatoes, to prevent progression to diabetes. The patient reports persistent bilateral lower extremity swelling, which has improved since her last visit but is still present. She denies excessive salt intake and has been advised to elevate her legs when sitting and to use support stockings to manage the swelling. Her cholesterol levels have increased, with LDL cholesterol rising from 100 mg/dL in 2020 to 140 mg/dL currently. The patient has been counseled on the risks of high cholesterol, including the potential for vascular blockage, and the importance of dietary modifications to manage her cholesterol levels. The patient has a significant vitamin D deficiency, with levels recorded at 10 ng/mL, well below the desired level of 30 ng/mL. She has been advised to take vitamin D supplements, especially given [place]. Preventative care measures include an up-to-date mammogram and pending colon cancer screening with a stool test, which was requested in May. Health Maintenance - Mammogram up to date - Colon cancer screening with stool test pending - Dietary counseling for impaired glucose tolerance and hypercholesterolemia - Vitamin D supplementation recommended Social History - Reports limited sun exposure due to geographical location and seasonal changes, contributing to vitamin D deficiency - Attempts to manage weight through dietary changes and exercise Review of Systems - Cardiovascular: Reports bilateral lower extremity swelling. Denies excessive salt intake. - Endocrine: Reports impaired glucose tolerance. - Musculoskeletal: Denies excessive physical activity contributing to swelling. - General: Reports weight management efforts and dietary changes. Physical Exam Results - Labs: Fasting blood sugar at 105 mg/dL indicating prediabetes - Labs: LDL cholesterol increased from 100 mg/dL in 2020 to 140 mg/dL currently - Labs: Vitamin D level at 10 ng/mL, below the desired level of 30 ng/mL Plan Patient was informed and verbally consented to the use of an ambient scribe for clinic note documentation during this visit. 1. Obesity The patient is advised to continue dietary modifications and increase physical activity to manage her weight. Regular follow-up appointments are recommended to monitor progress and adjust the management plan as needed. 2. Impaired Glucose Tolerance The patient is counseled on dietary changes to reduce carbohydrate intake and prevent progression to diabetes. Regular monitoring of blood glucose levels is advised to track any changes. 3. Bilateral Lower Extremity Swelling The patient is advised to elevate her legs when sitting and use support stockings to manage swelling. Exercise is recommended to improve circulation and reduce swelling. 4. Hypercholesterolemia The patient is advised to modify her diet to lower cholesterol levels and prevent vascular complications. Follow-up lipid panels are recommended to monitor cholesterol levels. 5. Vitamin D Deficiency The patient is advised to take vitamin D supplements to address deficiency. Regular monitoring of vitamin D levels is recommended to ensure adequate supplementation. Discussion Notes During the visit, I discussed with the patient the importance of managing her weight through dietary changes and increased physical activity to address obesity. We reviewed her blood work, noting impaired glucose tolerance and the need for dietary modifications to prevent diabetes. I emphasized the importance of managing her cholesterol levels through diet to prevent vascular complications. We also discussed her vitamin D deficiency and the need for supplementation, especially during the winter months. I advised her on managing her bilateral lower extremity swelling through leg elevation, support stockings, and exercise. Patient Instructions - Continue dietary changes to manage weight and prevent diabetes. - Monitor blood glucose levels regularly. - Elevate legs when sitting and use support stockings to manage swelling. - Modify diet to lower cholesterol levels. - Take vitamin D supplements as recommended. - Schedule regular follow-up appointments to monitor health status.
== END 2025-09-22 09:24 | disposition home or self-care (01) ==
LOC: HO.HMCH 08:42
PROVIDERS: PCP Internal Medicine; Visit Provider Internal Medicine
DX: R73.02 Impaired glucose tolerance (oral) (principal); E66.9 Obesity, unspecified; Z68.37 Body mass index [BMI] 37.0-37.9, adult; Z12.11 Encounter for screening for malignant neoplasm of colon; M79.89 Other specified soft tissue disorders; E55.9 Vitamin D deficiency, unspecified; E78.00 Pure hypercholesterolemia, unspecified